=== PATIENT | female | born 1985 | race Caucasian/White ===

== ENCOUNTER 2018-12-28 12:10 | Emergency (ER) | payer OTHER ==
[2018-12-28] MEDS ORDERED: Lactated Ringers 1000 ML Bag* 1,000 ML IV SCH (14:00)
[2018-12-28 14:23] LABS: ABS Basophils 0.1 10^3/ul (0-0.2); ABS Eosinophils 0.2 10^3/ul (0-0.6); ABS Lymphocytes 2.2 10^3/ul (1.0-4.8); ABS Monocytes 0.6 10^3/ul (0-0.8); ABS Neutrophils 8.8 10^3/ul (1.5-7.7); Hematocrit 35 % (35-47); Hemoglobin 10.8 g/dL (12.0-16.0); Lymphocyte % 18.4 %; Mean Corpuscular HGB Conc 31 g/dL (31-36); Mean Corpuscular Hemoglobin 22 pg (27-31); Mean Corpuscular Volume 69 fL (80-97); Mean Platelet Volume 7.6 fL (7.4-10.4); Platelet Count 341 10^3/uL (150-450); Red Cell Distribution Width 16 % (10-15); White Blood Count 11.9 10^3/uL (3.5-10.8)
[2018-12-28 14:40] LABS: HCG Pregnancy < 0.60 mIU/mL
[2018-12-28 14:47] LABS: ALT 17 U/L (7-52); AST 20 U/L (13-39); Albumin 4.3 g/dL (3.2-5.2); Albumin/Globulin Ratio 1.5 (1-3); Alkaline Phosphatase 61 U/L (34-104); Anion Gap 7 mmol/L (2-11); Blood Urea Nitrogen 8 mg/dL (6-24); C Reactive Protein 9.27 mg/L (<8.01); CO2 Carbon Dioxide 27 mmol/L (22-32); Calcium 9.5 mg/dL (8.6-10.3); Chloride 105 mmol/L (101-111); EGFR African American 87.9 (>60); EGFR Non-African American 72.6 (>60); Globulin 2.8 g/dL (2-4); Glucose 83 mg/dL (70-100); Potassium 3.9 mmol/L (3.5-5.0); Sodium 139 mmol/L (135-145); Total Protein 7.1 g/dL (6.4-8.9)
[2018-12-28 14:48] LABS: Microcytosis 2+
[2018-12-28] MEDS ORDERED: Iohexol 300* (CONTRAST) 10 ML SDV IV ONE (14:51)
--- NOTE | 2018-12-28 15:14 | ED ---
Abdominal Pain/Female - HPI Summary HPI Summary: 33-year-old female who came in with a chief complaint of right lower quadrant pain which began at 4:00 this morning. Patient says the pain did not wake her up from sleep but she first noticed that upon waking up. She reports the pain as being a 7 out of 10 in the right lower quadrant which is stayed consistent since it began. She said there is no radiation of the pain or migration. Patient has been nothing by mouth since 10:00 last evening and denies anorexia. She is now vomiting or nausea at this time. She is not taking anything prior to arrival for alleviation of her symptoms. Her menses was 1 week ago and regular. She denies fever, chest pain, shortness breath, vaginal bleeding or discharge. She denies alcohol use or recreational drug use. - History of Current Complaint Chief Complaint: EDAbdPain Stated Complaint: ABDOMINAL PAIN PER PT Time Seen by Provider: 12/28/18 13:04 Hx Obtained From: Patient Hx Last Menstrual Period: 1 week ago ?: No Onset/Duration: Gradual Onset - Patient woke up with pain at 4:00 this morning, Lasting Hours - Pain began at 4:00 this morning Timing: Constant Severity Initially: Moderate Severity Currently: Moderate Pain Intensity: 6 Pain Scale Used: 0-10 Numeric Location: Discrete At: RLQ Radiates: No Character: Dull Allergies/Adverse Reactions: Allergies Allergy/AdvReac Type Severity Reaction Status Date / Time No Known Allergies Allergy Verified 12/28/18 12:14 Home Medications: Home Medications NK [No Home Medications Reported] 12/28/18 [History Confirmed 12/28/18] PMH/Surg Hx/FS Hx/Imm Hx Endocrine/Hematology History: Denies: Hx Diabetes Infectious Disease History: No Infectious Disease History: Denies: Traveled Outside the [place] in Last 30 Days - Social History Alcohol Use: Rare Substance Use Type: Reports: None Smoking Status (MU): Never Smoked Tobacco Review of Systems Constitutional: Negative Negative: Blurred Vision Cardiovascular: Negative Respiratory: Negative Positive: Abdominal Pain, Nausea. Negative: Vomiting, Diarrhea Genitourinary: Negative Negative: Bruising Psychological: Normal All Other Systems Reviewed And Are Negative: Yes Physical Exam Triage Information Reviewed: Yes Vital Signs On Initial Exam: Initial Vitals Temp Pulse Resp BP Pulse Ox 97.1 F 88 16 157/95 100 12/28/18 12:12 12/28/18 12:12 12/28/18 12:12 12/28/18 12:12 12/28/18 12:12 Vital Signs Reviewed: Yes Appearance: Positive: Well-Appearing, No Pain Distress, Well-Nourished, Obese Skin: Positive: Warm, Skin Color Reflects Adequate Perfusion Head/Face: Positive: Normal Head/Face Inspection Eyes: Positive: Normal, EOMI ENT: Positive: Hearing grossly normal Respiratory/Lung Sounds: Positive: Clear to Auscultation, Breath Sounds Present Cardiovascular: Positive: Normal, RRR, S1, S2 Abdomen Description: Positive: Soft, [place] Tenderness. Negative: CVA Tenderness (R), CVA Tenderness (L), Distended, Guarding, Peritoneal Signs Bowel Sounds: Positive: Hypoactive Psychiatric: Positive: Normal AVPU Assessment: Alert Procedures - Sedation Patient Received Moderate/Deep Sedation with Procedure: No Diagnostics - Vital Signs Vital Signs Temp Pulse Resp BP Pulse Ox 12/28/18 14:04 76 100 12/28/18 13:16 74 99 12/28/18 12:12 97.1 F 88 16 157/95 100 - Laboratory Lab Results: Lab Results 12/28/18 12/28/18 12/28/18 Range/Units 14:00 14:00 14:00 WBC 11.9 H (3.5-10.8) 10^3/uL RBC 5.00 H (3.70-4.87) 10^6 /uL Hgb 10.8 L (12.0-16.0) g/dL Hct 35 (35-47) % MCV 69 L (80-97) fL MCH 22 L (27-31) pg MCHC 31 (31-36) g/dL RDW 16 H (10-15) % Plt Count 341 (150-450) 10^3/uL MPV 7.6 (7.4-10.4) fL Neut % (Auto) 73.8 % Lymph % (Auto) 18.4 % [place] % (Auto) 5.2 % Eos % (Auto) 2.0 % Baso % (Auto) 0.6 % Absolute Neuts (auto) 8.8 H (1.5-7.7) 10^3/ul Absolute Lymphs (auto) 2.2 (1.0-4.8) 10^3/ul Absolute Monos (auto) 0.6 (0-0.8) 10^3/ul Absolute Eos (auto) 0.2 (0-0.6) 10^3/ul Absolute Basos (auto) 0.1 (0-0.2) 10^3/ul Absolute Nucleated RBC 0.0 10^3/ul Nucleated RBC % 0.0 Anisocytosis 2+ Microcytosis 2+ Hem Pathologist Commnt Pending Sodium 139 (135-145) mmol/L Potassium 3.9 (3.5-5.0) mmol/L Chloride 105 (101-111) mmol/L Carbon Dioxide 27 (22-32) mmol/L Anion Gap 7 (2-11) mmol/L BUN 8 (6-24) mg/dL Creatinine 0.89 (0.51-0.95) mg/dL Est GFR ( Amer) 87.9 (>60) Est GFR (Non-Af Amer) 72.6 (>60) BUN/Creatinine Ratio 9.0 (8-20) Glucose 83 (70-100) mg/dL Lactic Acid 0.7 (0.5-2.0) mmol/L Calcium 9.5 (8.6-10.3) mg/dL Total Bilirubin 0.40 (0.2-1.0) mg/dL AST 20 (13-39) U/L ALT 17 (7-52) U/L Alkaline Phosphatase 61 (34-104) U/L C-Reactive Protein 9.27 H (<8.01) mg/L Total Protein 7.1 (6.4-8.9) g/dL Albumin 4.3 (3.2-5.2) g/dL Globulin 2.8 (2-4) g/dL Albumin/Globulin Ratio 1.5 (1-3) Lipase 16 (11.0-82.0) U/L Beta HCG, Quant < 0.60 mIU/mL Result Diagrams: 12/28/18 17:44 12/28/18 14:00 Lab Statement: Any lab studies that have been ordered have been reviewed, and results considered in the medical decision making process. Re-Evaluation - Re-Evaluation First Eval Re-Evaluation Time: 17:00 Change: Unchanged Comment: Patient is still resting comfortably on the stretcher. No evolution of her symptoms at this time. Patient does not report any symptoms of hypovolemia. Abdominal Pain Fem Course/Dx - Course Course Of Treatment: Patient was evaluated for right lower quadrant pain in the emergency department. Patient was seen and evaluated. Patient was given 1 L of lactated Ringer's. After evaluation and physical exam laboratory results and a CT with IV contrast was obtained due to the patients story being suspicious for appendicitis. Laboratory results returned showing leukocytosis with neutrophilic shift white blood count cell count of 11.9 and auto neutrophil count of 8.8. Her CRP was elevated at 9.27 but otherwise her blood work was unremarkable with no acute abnormalities and no elevation and lactic acid,bilirubin or lipase. Dr. Reyes with Gen. surgery was consulted at 1645 regarding the patient's case and thought more likely the patient's symptoms are due to possible ovarian origin rather than an appendicitis although the CT scan was not able to appreciate the appendix. The CT scan revealed a 12.5 cm hematoma on the right abdomen which could be consistent with ovarian origin. The patient's hemoglobin and hematocrit at 2:00 in the afternoon was stable at 10.8/[address] Coker was consulted at 1658 and believes the patient's history is consistent with an ovarian cyst rupture on the right side. A repeat H&H was ordered at 1750 to reevaluate the patient's blood loss status. - Diagnoses Differential Diagnosis: Positive: Appendicitis, Constipation, Diverticulitis, Gall Bladder Disease, Ovarian Cyst, Peptic Ulcer Disease, Renal Colic Provider Diagnoses: Ovarian cyst - Provider Notifications Discussed Care Of Patient With: Marisol Coker - [employer] Time Discussed With Above Provider: 16:57 Discharge ED - Sign-Out/Discharge Documenting (check all that apply): Patient Departure, Sign-Out Patient Signing out patient TO: Rodrick Tillman - at 1728 Receiving patient FROM: Oleksandr Cain - Discharge Plan Condition: Stable Disposition: HOME Patient Education Materials: Ovarian Cyst (ED) Referrals: No Primary Care Phys,NOPCP [Primary Care Provider] - Marisol Coker MD [Medical Doctor] - 1 Day Additional Instructions: You were diagnosed today with a likely ovarian cyst rupture. You may manage your pain using [id number] Tylenol as needed. Avoid ibuprofen, aspirin, motrin, advil etc as they can thin your blood. Call [employer] DR Coker tomorrow am to schedule a follow-up with gynecology within 48hrs for further evaluation of your diagnosis. Please return to the emergency room if your symptoms worsen or if you develop any new symptoms such as increased abdominal pain, bruising of the abdomen, lightheadedness, shortness of breath, chest pain. - Billing Disposition and Condition Condition: STABLE Disposition: Home
[2018-12-28 15:41] LABS: Urine Appearance Clear; Urine Bilirubin Negative (Negative); Urine Blood Negative (Negative); Urine Color Straw; Urine Glucose Negative (Negative); Urine Ketones Negative (Negative); Urine Nitrite Negative (Negative); Urine Protein Negative (Negative); Urine Specific Gravity 1.016 (1.010-1.030); Urine Urobilinogen Negative (Negative)
[2018-12-28 17:50] LABS: Hematocrit 33 % (35-47); Hemoglobin 10.4 g/dL (12.0-16.0)
[2018-12-28 18:36] VITALS: BP 107/91
--- NOTE | 2018-12-28 18:42 | PN ---
Progress Note - Progress Note Date of Service: 12/28/18 Note: Patient signed out to me by Oleksandr DUFF pending repeat H&H per PANEL MACHINE [employer]ER Dr. Crabtree advice. Repeat H&H discussed with Dr. Coker who recommended follow- up with PANEL MACHINE TENDER in 48 hours. Patient does not have PANEL MACHINE TENDER, will call office of Dr. Coker tomorrow morning to arrange follow-up. Patient discharged home in stable condition with diagnosis of ovarian cyst.
== END 2018-12-28 18:36 | disposition home or self-care (01) ==
LOC: ED 12:10
DX: N83.209 Unspecified ovarian cyst, unspecified side (principal)
CPT/HCPCS: 36415; 74177; 80053; 81003; 83605; 83690; 84702; 85014; 85018; 85025; 85060; 86140; 96360; 96361; 99282; Q9967